=== PATIENT | male | born 1990 | race Caucasian/White ===

== ENCOUNTER 2016-11-22 20:01 | Inpatient (IN) | payer BC, OTHER ==
[2016-11-22 20:00] VITALS: O2SAT 91
[~2016-11-22 20:01] MED LIST: EPINEPHrine HCL (1:10,000) 1 MG/10 ML SYRINGE IV ONE; LACTATED RINGER'S 1000 ML INJ 4,000 ML IV ONE; LORazepam 2 MG/ML VIAL IVP ONE; NOREPINEPHRINE 4 MG/4 ML AMP IV ONE; SODIUM BICARBONATE 8.4% INJ 50 MEQ/50 ML SYR IV ONE; SODIUM CHLORID 0.9% 500 ML INJ 500 ML IV ONE; SUCCINYLCHOLINE CHLORIDE 200 MG/10 ML VIAL IVP ONE
[2016-11-22 20:20] VITALS: O2SAT 0
[2016-11-22 20:24] LABS: BLOOD GAS BASE EXCESS -4.6 mmol/L (-2-2); BLOOD GAS CARBOXYHEMOGLOBIN 3.8 % (0-4); BLOOD GAS HCO3 20 mmol/L (22-26); BLOOD GAS METHEMOGLOBIN 1.3 % (0-2); BLOOD GAS O2 HGB SATURATION 91 % (90-100); BLOOD GAS OXYGEN CONTENT 12.9 Vol % (12.0-20.0); BLOOD GAS PCO2 36 mmHg (38-42); BLOOD GAS PO2 71 mmHG (61-120); CRITICAL VALUE NO; FIO2 100 %; LITER FLOW 15 L/M; OXYGEN DEVICE AMBU; TEMP CORR TO 98.6
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
[2016-11-22 20:25] LABS: DRAW SITE RT FEMORAL; NUMBER OF ARTERIAL PUNCTURES 1; STAT YES
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
[2016-11-22] MEDS ORDERED: ceFAZolin 2 GM PREMIX 50 ML IV STA (20:28)
[2016-11-22] MEDS ORDERED: DIPHTH/TETANUS/ACEL PERTUSSIS (BOOSTER) 0.5 ML VIAL/PFS IM ONE (20:28)
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
[2016-11-22 20:41] LABS: I-STAT POTASSIUM 3.4 MMOL/L (3.5-4.9); I-STAT SODIUM 141 MMOL/L (138-146)
[2016-11-22] MEDS ORDERED: IOHEXOL 350 MG/ML 10 ML VIAL (for RAD DIAG) IV ONE (20:41)
[2016-11-22 20:43] LABS: AUTOMATED NEUTROPHIL # 12.2 TH/MM3 (1.8-7.7); BASOPHIL # 0.1 TH/MM3 (0-0.2); BASOPHIL % 0.5 % (0.0-2.0); EOSINOPHIL # 0.1 TH/MM3 (0-0.4); EOSINOPHIL % 0.4 % (0.0-4.0); HEMATOCRIT 34.2 % (39.0-51.0); HEMO FLAGS AUTO DIFF; LYMPH % 24.3 % (9.0-44.0); LYMPHOCYTE # 4.1 TH/MM3 (1.0-4.8); MEAN CELL VOLUME 87.2 FL (80.0-100.0); MEAN CORPUSCULAR HEMOGLOBIN 29.3 PG (27.0-34.0); MEAN CORPUSCULAR HGB CONC 33.6 % (32.0-36.0); MONO % 1.7 % (0.0-8.0); NEUT % 73.1 % (16.0-70.0); PLATELET COUNT 169 TH/MM3 (150-450); RED BLOOD COUNT 3.92 MIL/MM3 (4.50-5.90); RED CELL DISTRIBUTION WIDTH 13.1 % (11.6-17.2); WHITE BLOOD COUNT 16.7 TH/MM3 (4.0-11.0)
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
[2016-11-22 20:56] LABS: APTT (PATIENT) 29.7 SEC (24.3-30.1); INTERNATIONAL NORMALIZED RATIO 1.2 RATIO; PROTHROMBIN TIME - PATIENT 13.1 SEC (9.8-11.6)
[2016-11-22] MEDS ORDERED: PROPOFOL 1000 MG/100 ML INJ 100 ML ONE (20:58)
[2016-11-22 21:00] VITALS: O2SAT 0
[2016-11-22 21:09] LABS: PLATELET ESTIMATE SMEAR NORMAL (NORMAL); PLATELET MORPHOLOGY NORMAL (NORMAL); SCAN/DIFF AUTO DIFF CONFIRMED
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
[2016-11-22 22:07] LABS: BLOOD GAS BASE EXCESS -8.7 mmol/L (-2-2); BLOOD GAS CARBOXYHEMOGLOBIN 2.3 % (0-4); BLOOD GAS HCO3 20 mmol/L (22-26); BLOOD GAS O2 HGB SATURATION 92 % (90-100); BLOOD GAS OXYGEN CONTENT 9.7 Vol % (12.0-20.0); BLOOD GAS PCO2 69 mmHg (38-42); BLOOD GAS PO2 98 mmHg (61-120); BLOOD GAS TOTAL HGB 7.3 G/DL (12.0-16.0); TEMP CORR TO 98.6
[2016-11-22 22:08] LABS: OXYGEN DEVICE OR; STAT YES; VENT SETTINGS OR
[2016-11-22 22:28] LABS: BLOOD GAS BASE EXCESS -10.7 mmol/L (-2-2); BLOOD GAS CARBOXYHEMOGLOBIN 1.9 % (0-4); BLOOD GAS HCO3 17 mmol/L (22-26); BLOOD GAS METHEMOGLOBIN 0.8 % (0-2); BLOOD GAS O2 HGB SATURATION 94 % (90-100); BLOOD GAS OXYGEN CONTENT 12.3 Vol % (12.0-20.0); BLOOD GAS PCO2 59 mmHg (38-42); BLOOD GAS PO2 112 mmHg (61-120); BLOOD GAS TOTAL HGB 9.2 G/DL (12.0-16.0); OXYGEN DEVICE OR; TEMP CORR TO 98.6; VENT SETTINGS OR
[2016-11-22 22:30] LABS: STAT YES
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
[2016-11-22 23:15] LABS: AUTOMATED NEUTROPHIL # 9.9 TH/MM3 (1.8-7.7); BASOPHIL % 0.3 % (0.0-2.0); EOSINOPHIL # 0.1 TH/MM3 (0-0.4); EOSINOPHIL % 0.4 % (0.0-4.0); HEMATOCRIT 24.2 % (39.0-51.0); LYMPH % 26.6 % (9.0-44.0); LYMPHOCYTE # 3.8 TH/MM3 (1.0-4.8); MEAN CELL VOLUME 89.6 FL (80.0-100.0); MEAN CORPUSCULAR HEMOGLOBIN 30.2 PG (27.0-34.0); MEAN CORPUSCULAR HGB CONC 33.7 % (32.0-36.0); MONO % 2.8 % (0.0-8.0); NEUT % 69.9 % (16.0-70.0); PLATELET COUNT 76 TH/MM3 (150-450); RED BLOOD COUNT 2.69 MIL/MM3 (4.50-5.90); RED CELL DISTRIBUTION WIDTH 13.8 % (11.6-17.2); WHITE BLOOD COUNT 14.1 TH/MM3 (4.0-11.0)
[2016-11-22 23:16] LABS: BLOOD GAS BASE EXCESS -11.3 mmol/L (-2-2); BLOOD GAS CARBOXYHEMOGLOBIN 2.3 % (0-4); BLOOD GAS HCO3 17 mmol/L (22-26); BLOOD GAS O2 HGB SATURATION 94 % (90-100); BLOOD GAS OXYGEN CONTENT 11.3 Vol % (12.0-20.0); BLOOD GAS PCO2 62 mmHg (38-42); BLOOD GAS PO2 125 mmHg (61-120); BLOOD GAS TOTAL HGB 8.4 G/DL (12.0-16.0); CRITICAL VALUE YES; OXYGEN DEVICE OR; STAT YES; TEMP CORR TO 98.6; VENT SETTINGS OR
[2016-11-22] MEDS ORDERED: EPINEPHrine HCL (1:1000) 1 MG/ML VIAL ONE (23:16)
[2016-11-22 23:17] LABS: HEMO FLAGS AUTO DIFF
[2016-11-22 23:33] LABS: APTT (PATIENT) 76.7 SEC (24.3-30.1); INTERNATIONAL NORMALIZED RATIO 1.5 RATIO; PROTHROMBIN TIME - PATIENT 17.4 SEC (9.8-11.6)
[2016-11-22 23:35] VITALS: O2SAT 89
[2016-11-22] MEDS ORDERED: SODIUM CHLOR 0.9% 1000 ML INJ 1,000 ML IV SCH (23:35)
[2016-11-22 23:42] LABS: BICARBONATE 20.6 MEQ/L (21.0-32.0); POTASSIUM 3.2 MEQ/L (3.5-5.1)
[2016-11-22] MEDS ORDERED: ONDANSETRON HCL 4 MG/2 ML VIAL IV PRN (23:45)
[2016-11-22] MEDS ORDERED: CHLORHEXIDINE GLUCONATE 2 % 1 PACK (2 CLOTHS) TOP PRN (23:45)
[2016-11-22] MEDS ORDERED: ENALAPRILAT 1.25 MG/ML VIAL IV PRN (23:45)
[2016-11-22] MEDS ORDERED: MISCELLANEOUS NURSING INFORMATION XX SCH (23:45)
[2016-11-22] MEDS ORDERED: SODIUM CHLORIDE 0.9% FLUSH 5 ML FLUSH IVF PRN (23:45)
[2016-11-22] MEDS ORDERED: fentaNYL CITRATE 250 MCG/5 ML AMP ONE (23:51)
[2016-11-22 23:54] LABS: BANDS 18 % (0-6); BASOPHILS 1 % (0-2); METAMYELOCYTES 5 % (0-1); MYELOCYTES 2 % (0-0); POLYS (SEG NEUTROPHILS) 39 % (16-70); WBC DIFF SAMPLE 100
[2016-11-22 23:55] LABS: CALCIUM-PROTEIN CORRECTED 9.9 MG/DL (8.5-10.1); PLATELET ESTIMATE SMEAR LOW (NORMAL); PLATELET MORPHOLOGY NORMAL (NORMAL); SCAN/DIFF FINAL DIFF MANUAL
[2016-11-22 23:56] LABS: TOXIC VACUOLATION PRESENT (NONE SEEN)
[2016-11-22] MEDS ORDERED: SODIUM BICARBONATE 8.4% INJ 50 ML ONE (23:58)
[2016-11-22] MEDS ORDERED: DOPamine INJ PREMIX 500 ML ONE (23:58)
[2016-11-22] MEDS ORDERED: VASOPRESSIN INJ 20 UNITS/ML VIAL ONE (23:59)
[2016-11-23] VITALS: O2SAT 88
[2016-11-23] MEDS ORDERED: PANTOPRAZOLE SODIUM 40 MG VIAL IVP SCH
[2016-11-23] MEDS ORDERED: SODIUM BICARBONATE 8.4% INJ 150 MEQ in DEXTROSE 5% IN WATE 1000ML INJ 1,000 ML IV SCH ×2
[2016-11-23] MEDS ORDERED: PHYTONADIONE INJ 10 MG in DEXTROSE 5% IN WATER INJ 50 ML IV ONE ×2 (00:15)
[2016-11-23] MEDS ORDERED: VASOPRESSIN INJ 20 UNITS/ML VIAL ONE (00:18)
[2016-11-23 00:20] VITALS: O2SAT 0
[2016-11-23] MEDS ORDERED: CALCIUM GLUCONATE INJ 2 GM in SODIUM CHLORIDE 0.9% INJ 100 ML IV ONE (00:30)
--- NOTE | 2016-11-23 00:31 | RADRPT ---
EXAM DATE/TIME: 11/22/2016 23:49 [facility] COMPARISON: CHEST SINGLE AP, November 22, 2016, 19:56. INDICATIONS : Post chest tube placement. MEDICAL HISTORY : Non-responsive SURGICAL HISTORY : Non-responsive ENCOUNTER: Subsequent ACUITY: 1 day PAIN SCORE: Non-responsive. LOCATION: Bilateral chest FINDINGS: Bilateral chest tubes are now in place. No pneumothorax on the right. Tiny apical pneumothorax on the left. Increasing interstitial and airspace infiltrates throughout the right lung and left lower lung . The endotracheal tube appears to be in good position. There is an NG tube in the stomach. The heart size is within normal limits. The bony structures are stable. CONCLUSION: Bilateral chest tube placement. No pneumothorax on the right. Tiny left apical pneumothorax. Increasi ng bilateral pulmonary infiltrates, right greater than left. Tigre Kramer MD on November 23, 2016 at 0:27 Board Certified Radiologist. This report was verified electronically.
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
[2016-11-23] MEDS ORDERED: CALCIUM CHLORIDE 10% SOLN 1 GRAM/10 ML SYR IV ONE (02:47)
[2016-11-23] MEDS ORDERED: NOREPINEPHRINE 4 MG/4 ML AMP IV ONE ×2 (02:47)
[2016-11-23] MEDS ORDERED: SODIUM BICARBONATE 8.4% INJ 50 MEQ/50 ML SYR IV ONE (02:47)
[2016-11-23] MEDS ORDERED: EPINEPHrine HCL (1:10,000) 1 MG/10 ML SYRINGE IV ONE (02:47)
[2016-11-23] MEDS ORDERED: ATROPINE SULFATE 1 MG/10 ML SYRINGE IV ONE (02:47)
[2016-11-23] MEDS ORDERED: CHLORHEXIDINE GLUCONATE 2 % 1 PACK (2 CLOTHS) TOP SCH (04:00)
[2016-11-29 10:50] LABS: CRITICAL VALUE YES
[2016-11-29 10:55] LABS: CRITICAL VALUE YES
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
--- NOTE | 2016-12-12 08:20 | MP ---
cc: PAUL LEY DATE OF SURGERY: 11/22/2016 PREOPERATIVE DIAGNOSIS Splenic laceration. POSTOPERATIVE DIAGNOSIS 1. Splenic laceration. 2. Liver laceration. PROCEDURE 1. Exploratory laparotomy. 2. Splenectomy. 3. Packing of the abdomen. 4. Bilateral chest tube placement. FINDINGS The patient had extensive hemoperitoneum with laceration and ongoing bleeding from his liver and spleen. The patient was being resuscitated aggressively, became coagulopathic during the operation and was hypothermic. As a result it was not possible to move the patient to get control of the patient's liver bleed and the liver was packed and the patient was taken back to [facility] for further resuscitation. SPECIMENS Spleen. OPERATION The patient was brought to the operating room, placed on the operating table in supine position. Bilateral sequential inflation devices were placed on the lower extremities. General anesthesia was instituted. The abdomen was prepped and draped sterilely. An incision was made from the patient's xiphoid to below the umbilicus. Hemoperitoneum was encountered. The upper abdomen was packed with lap pads. Attention was focused on the spleen. There was a laceration to the spleen that was actively bleeding. The spleen was brought into the wound. The splenorenal and splenodiaphragmatic ligaments were . The short gastric vessels were with the Harmonic and the splenic hilum was dissected. The splenic artery and vein were identified, isolated, ligated with 0 silk sutures and then divided with the Harmonic scalpel. The spleen was sent off the field. Attention was focused on the liver. There was a continuous spleen on the right lobe of the liver. Attempts at hemostatic agents followed by suture ligation to the liver were made unsuccessfully. It was then decided to pack the abdomen off. The bowel was inspected with no evidence of bowel injury, stomach injury or pancreatic injury. The patient did appear to have a retroperitoneal hematoma in the pelvis. A VAC dressing was then placed and the patient was taken to the [facility] for continued resuscitation. MD LAYTON Perry/MOE /3:57 PM /8:10 AM
== END 2016-11-23 02:48 | disposition expired | DRG 957 ==
LOC: NEPI 20:01 → EDBD 20:36 → NEDA 20:36 → N03B 23:33
PROVIDERS: ADMIT Surgery; ATTEND Surgery
PROC: 0W9930Z Drainage of Right Pleural Cavity with Drainage Device, Percutaneous Approach (ICD-10-PCS; 2016-11-22)
PROC: 0W9B30Z Drainage of Left Pleural Cavity with Drainage Device, Percutaneous Approach (ICD-10-PCS; 2016-11-22)
PROC: 5A1935Z Respiratory Ventilation, Less than 24 Consecutive Hours (ICD-10-PCS; 2016-11-22)
PROC: 30233N1 Transfusion of Nonautologous Red Blood Cells into Peripheral Vein, Percutaneous Approach (ICD-10-PCS; 2016-11-22)
PROC: 30233R1 Transfusion of Nonautologous Platelets into Peripheral Vein, Percutaneous Approach (ICD-10-PCS; 2016-11-22)
PROC: 30233K1 Transfusion of Nonautologous Frozen Plasma into Peripheral Vein, Percutaneous Approach (ICD-10-PCS; 2016-11-22)
PROC: 07TP0ZZ Resection of Spleen, Open Approach (ICD-10-PCS; principal; 2016-11-22 21:10)
PROC: 0FQ00ZZ Repair Liver, Open Approach (ICD-10-PCS; 2016-11-22 21:10)
DX: S72.352A Displaced comminuted fracture of shaft of left femur, initial encounter for closed fracture; J96.90 Respiratory failure, unspecified, unspecified whether with hypoxia or hypercapnia; S32.591A Other specified fracture of right pubis, initial encounter for closed fracture; T79.4XXA Traumatic shock, initial encounter; K66.1 Hemoperitoneum; D68.9 Coagulation defect, unspecified; S36.113A Laceration of liver, unspecified degree, initial encounter; S22.21XA Fracture of manubrium, initial encounter for closed fracture; S27.321A Contusion of lung, unilateral, initial encounter; S36.039A Unspecified laceration of spleen, initial encounter; S32.592A Other specified fracture of left pubis, initial encounter for closed fracture; S42.102A Fracture of unspecified part of scapula, left shoulder, initial encounter for closed fracture; S50.812A Abrasion of left forearm, initial encounter; R40.2431 Glasgow coma scale score 3-8, in the field [EMT or ambulance]; I46.9 Cardiac arrest, cause unspecified; R00.1 Bradycardia, unspecified; V29.9XXA Motorcycle rider (driver) (passenger) injured in unspecified traffic accident, initial encounter
CPT/HCPCS: 31500; 36430; 36600; 70450; 71010; 71260; 72125; 72128; 72131; 72170; 73551; 74177; 75635; 76937; 80048; 80320; 82435; 82565; 82805; 82947; 84132; 84155; 84295; 84520; 85007; 85025; 85027; 85384; 85610; 85730; 86850; 86900; 86901; 86920; 86927; 86965; 88305; 90471; 94002; 96374; 99291; A0431-QM-SH; A0436-QM-SH; G0390; J0171; J0330; J0461; J1265; J2060; J3010; J7040; J7120; L0150; P9016; P9017; P9035; Q9967